=== PATIENT | male | born 1970 | race Caucasian/White ===

== ENCOUNTER 2021-11-23 06:04 | Day surgery (SDC) | payer BC ==
[~2021-11-23] VITALS: Ht 175.3 cm; Wt 98.6 kg
[~2021-11-23 06:04] MED LIST: HYDACE5 PO; HYDR1TAB94 PO; LOSA25 PO; PROM25 PO; Permethrin60 GM TP; SUCR1 PO; VARE1 PO
[2021-11-23] MEDS ORDERED: IBUP400 PO (06:31)
== END 2021-11-23 08:15 | disposition home or self-care (01) ==
LOC: ORSCSDS 06:04
PROVIDERS: Orthopaedic Surgery
PROC: 01N50ZZ Release Median Nerve, Open Approach (ICD-10-PCS; principal; 2021-11-23 07:30)
DX: G56.03 Carpal tunnel syndrome, bilateral upper limbs (principal); E78.00 Pure hypercholesterolemia, unspecified; Z72.0 Tobacco use; I10 Essential (primary) hypertension; E66.9 Obesity, unspecified; Z68.32 Body mass index [BMI] 32.0-32.9, adult; Z79.899 Other long term (current) drug therapy
CPT/HCPCS: J2250; J2704; J3010; J7120